=== PATIENT | male | born 1960 | race Caucasian/White ===

== ENCOUNTER 2019-11-19 16:47 | Emergency (ER) | payer OTHER, SELFPAY | END 2019-11-19 23:00 | disposition left against medical advice (07) | LOC: ER 01-09 08:55 | PROVIDERS: Emergency Provider Family Medicine | DX: Z53.21 Procedure and treatment not carried out due to patient leaving prior to being seen by health care provider (principal) | CPT/HCPCS: 99281 ==

== ENCOUNTER 2019-11-20 06:53 | Day surgery (SDC) | payer OTHER, SELFPAY ==
[2019-11-20] VITALS (13 sets, daily range): BP systolic 106–133; BP diastolic 52–73; PULSE 71–85; RESP 12–20; TEMP 36.3–37.3; O2SAT 90–98; BMI 27.5
--- NOTE | 2019-11-20 07:06 | ED_ITS ---
Documented by User: SAMINA Woodard 11/20/19 10:10 HPI - Abdominal Pain General: Chief Complaint: Abdominal Pain Stated Complaint: ABD PAIN Time Seen by Provider: 11/20/19 07:05 History of Present Illness: HPI narrative: Patient is a 59-year-old male who comes to the ED with abdominal pain, nausea/vomiting/diarrhea. Patient has a past medical history of hypertension and diabetes. Patient says the abdominal pain started 5 days ago and it is located in the periumbilical region and also right upper quadrant. He says the pain comes and goes and currently here in the ED he says his pain is minimal and rates it about 1 out of 10. He said he currently does not want any pain meds at this time. Patient says this morning he woke up and he had an episode of diarrhea and emesis. He also describes having pain in his right testicle as well. Denies any swelling, erythema or warmth of the testes. Right testicle is tender to the touch he says that the testicle pain started about the same down to the other abdominal pain 5 days ago. Denies any fever, chills, chest pain, shortness of breath, dysuria, hematuria, blood in stool. Associated Symptoms: Reports diarrhea, nausea and vomiting; Denies chills, constipation, dysuria, fever(s), hematochezia and hematuria Review of Systems Const: Denies: fever(s), chills or fatigue Eyes: Denies: change in vision or eye discomfort ENMT: Denies: throat pain, odynophagia, nasal discharge or nasal congestion Card: Denies: chest pain, palpitations, edema, swelling of feet/ankles, dyspnea on exertion or orthopnea Resp: Denies: dyspnea, productive cough or non-productive cough GI: Reports: abdominal pain, nausea, vomiting and diarrhea; Denies: constipation or hematochezia : Reports: testicular pain; Denies: flank pain, difficulty urinating, dysuria, hematuria, genital lesions, penile discharge or testicular mass Musc: Denies: neck pain, back pain or extremity swelling Skin/Breast: Denies: rash or new lesions Neuro: Denies: headache(s), numbness in extremities or weakness in extremities Physical Exam Const: COMMON NORMALS: no acute distress, patient oriented x3 and alert GENERAL APPEARANCE: cooperative, comfortable and diaphoretic (mild) HENMT: COMMON NORMALS: normocephalic HEAD & SCALP: normocephalic MOUTH: Normal oral and palatal mucosa present THROAT: posterior oropharynx normal and uvula midline Neck/C-Spine: COMMON NORMALS: supple GENERAL: Yes normal visual inspection Resp: COMMON NORMALS: normal respiratory effort, No retractions, No use of accessory muscles and clear to auscultation bilaterally AUSCULTATION: clear to auscultation bilaterally Cardio: COMMON NORMALS: regular rate, regular rhythm, S1 normal heart sound present, S2 normal heart sound present, No gallops present (Cardio), No clicks present (Cardio), No murmurs present (Cardio) and Peripheral pulses 2+ throughout RATE: regular rate RHYTHM: regular rhythm HEART SOUNDS: S1 normal heart sound present and S2 normal heart sound present PERIPHERAL PULSES: Peripheral pulses 2+ throughout GI: COMMON NORMALS: Normal to inspection, nondistended, normoactive bowel sounds present, Soft to palpation and no masses PALPATION: Yes Soft to palpation and Yes Tenderness to palpation present (GI) Details: RLQ (positive mcburneys point and negative bernal's sign) and other (periumbilical tenderness) : COMMON NORMALS: Yes no CVA tenderness BLADDER/KIDNEY EXAM: Yes no CVA tenderness TESTES: No testicular swelling, Yes testicular tenderness Testicular tenderness laterality: right and No testicular mass Back/Pelvis: COMMON NORMALS: no CVA tenderness Extremity: COMMON NORMALS: normal to inspection and no pedal edema Neuro: COMMON NORMALS: patient oriented x3 SENSORIUM/ORIENTATION: Yes alert GAIT: Yes Normal gait present Skin: COMMON NORMALS: no rashes or lesions noted NARRATIVE SKIN EXAM: Patient's skin was clammy on the neck back and abdomen. GENERAL SKIN EXAM: no rashes or lesions noted Course Vital Signs: Vital signs: Vital Signs Temperature 98.8 F 11/20/19 06:58 Pulse Rate 80 11/20/19 06:58 Respiratory Rate 16 11/20/19 06:58 Blood Pressure 106/52 11/20/19 06:58 Pulse Oximetry 90 11/20/19 06:58 MDM - Abdominal Pain MDM Narrative: Medical decision making narrative: Patient is a 59-year-old male who comes to the ED with abdominal pain, nausea/vomiting/diarrhea. He was also complaining of some right testicular pain. Abdominal pain is in the periumbilical region and right lower quadrant. Positive McBurney's point tenderness. White blood cell count 12.1 and CMP and UA were unremarkable. Ultrasound of testicles showed no acute findings. CT of the abdomen showed acute appendicitis and severe stenosis or occlusion of left common iliac artery. I discussed patient's case with Dr. Giles and he will be taking over patient care and admission of patient. Lab Data: Attestation: I reviewed the patient's lab results. Labs: Lab Results 11/20/19 11/20/19 11/20/19 Range/Units 05:34 05:34 08:09 WBC 12.1 H (4.0-10.0) 10^3/ uL RBC 5.07 (4.1-5.3) 10^6/u L Hgb 17.0 H (11.7-16.6) g/dL Hct 48.7 (42.0-52.0) % MCV 96.1 H (80-94) fL MCH 33.5 (28.0-34.0) pg MCHC 34.9 (30.0-36.0) g/dL RDW 12.5 (12.1-15.1) % Plt Count 211 (130-400) 10^3/c mm MPV 10.8 H (7.4-10.4) fL Neut % (Auto) 93.8 % Lymph % (Auto) 3.2 % [facility] % (Auto) 2.4 % Eos % (Auto) 0.2 % Baso % (Auto) 0.2 % Neut # (Auto) 11.3 H (1.8-7.7) 10^3/u L Lymph # (Auto) 0.4 L (0.8-4.8) 10^3/u L [facility] # (Auto) 0.3 (0.2-0.9) 10^3/u L Eos # (Auto) 0.0 (0.0-0.8) 10^3/u L Baso # (Auto) 0.0 (0.0-0.1) 10^3/u L Nucleated RBC % (a uto) 0 % Nucleated RBCs # 0.0 /100WBC Sodium 136 (136-145) mmol/L Potassium 3.4 L (3.5-5.1) mmol/L Chloride 98 (98-107) mmol/L Carbon Dioxide 17 L (22-29) mmol/L Anion Gap 24.4 H (5-19) BUN 13 (8-23) mg/dL Creatinine 1.0 (0.7-1.2) mg/dL GFR Calculation 76.0 L (90-130) mL/min Glucose 173 H (65-115) mg/dL Calculated Osmolal ity 282 L (285-295) mOsm/k g Calcium 9.3 (8.5-10.5) mg/dL Total Bilirubin 1.2 (0.15-1.2) mg/dL AST 16 (0-40) U/L ALT 11 (0-41) U/L Alkaline Phosphata se 71 (40-130) IU/L Total Protein 7.8 (6.6-8.7) g/dL Albumin 3.7 (3.5-5.2) g/dL Globulin 4.1 (1.3-4.6) g/dL Lipase 20 (13-60) U/L Urine Color Dark yellow (Yellow) Urine Appearance Clear (CLEAR) Urine pH 5 (5-7) Ur Specific Gravit y 1.020 (1.005-1.030) Urine Protein 1+ H (Negative) Urine Glucose (UA) Trace H (Normal) Urine Ketones 2+ H (Negative) Urine Blood Neg (Negative) Urine Nitrate Negative (Negative) Urine Bilirubin 1+ H (NEGATIVE) Urine Urobilinogen 1 H (Negative) mg/dL Ur Leukocyte Nancy ase Negative (Negative) Urine RBC None (0-2) /hpf Urine WBC Rare (0-5) /hpf Ur Squamous Epith Cells Rare (0-5) Urine Bacteria Trace (NONE) Hyaline Casts 0-4 H Fine Granular Cast s 0-4 H /lpf Coarse Granular Ca sts 0-4 H /lpf Urine Mucus 3+ Imaging Data ^: US: Attestation: I personally reviewed and interpreted this imaging study as follows: Radiologist's impression: [address] [address] Ultrasound Report Signed Patient: Noel Sherwood Unit #: [id number] : 1960 Age/Sex: 59 / M ADM Date: 11/20/19 Loc: ER Room/Bed: Attending Dr: Ordering Provider/Ordering MD: Zander Aguilera Date of Service: 11/20/19 Procedure(s): US scrotum [id number] Accession Number(s): [id number] Report Number: [id number] PROCEDURE INFORMATION: Exam: US Scrotum Exam date and time: 11/20/2019 9:22 AM Age: 59 years old Clinical indication: Scrotum pain; Additional info: Right testicular pain TECHNIQUE: Imaging protocol: Real-time ultrasound of the scrotum and contents with color Doppler and image documentation. COMPARISON: No relevant prior studies available. FINDINGS: Right testicle: 3.7 x 2.6 x 2.5 cm. No mass. No torsion. Normal vascular flow. The arterial resistive index is 0.67. Left testicle: 4.6 x 2.8 x 2.3 cm. No mass. No torsion. Normal vascular flow. The arterial resistive index is 0.62. Epididymides: Right epididymis 1.5 cm. Left epididymis 1.8 cm. Unremarkable. Scrotum: Normal. US/US scrotum [id number] IMPRESSION: No acute abnormality identified. Dictated By: Bull Lugo MD Signed By: Bull Lugo MD Signed Date/Time: 11/20/19955 DD/ 3 CT Abd/Pel: Attestation: I personally reviewed and interpreted this imaging study as follows: Radiologist's impression: [address] [address] [address] Scan Report Signed Patient: Noel Sherwood Unit #: [id number] : 1960 Age/Sex: 59 / M ADM Date: 11/20/19 Loc: ER Room/Bed: Attending Dr: Ordering Provider/Ordering MD: Zander Aguilera Date of Service: 11/20/19 Procedure(s): CT abdomen pelvis w con* [id number] Accession Number(s): [id number] Report Number: [id number] PROCEDURE INFORMATION: Exam: CT Abdomen And Pelvis With Contrast Exam date and time: 11/20/2019 7:45 AM Age: 59 years old Clinical indication: Abdominal pain; Localized; Right lower quadrant (rlq); Additional info: Abdom pain, n/v/d TECHNIQUE: Imaging protocol: Computed tomography of the abdomen and pelvis with intravenous contrast. Radiation optimization: All CT scans at this facility use at least one of these dose optimization techniques: automated exposure control; mA and/or kV adjustment per patient size (includes targeted exams where dose is matched to clinical indication); or iterative reconstruction. Contrast material: Omnipaque 300; Contrast volume: 95 ml; Contrast route: INTRAVENOUS (IV); COMPARISON: No relevant prior studies available. RADIATION DOSE METRICS: Total DLP (mGy-cm): 933.33 FINDINGS: Lungs: Bibasilar mild pulmonary subsegmental atelectasis is present. Liver: Normal. No mass. Gallbladder and bile ducts: Normal. No calcified stones. No ductal dilation. Pancreas: Normal. No ductal dilation. Spleen: The spleen demonstrates a few small granulomatous calcifications. Adrenals: Normal. No mass. Kidneys and ureters: Lateral left mid renal 8 mm exophytic indeterminate lesion. Stomach and bowel: Right subdiaphragmatic colonic interposition is present, a normal variant. Appendix: The appendix is moderately enlarged, measuring approximately 15.4 mm diameter with severe periappendiceal edema. A low-attenuation obstructing appendicolith is present measuring 11 mm. A periappendiceal fluid collection is not identified. Intraperitoneal space: Unremarkable. No free air. No significant fluid collection. 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 Atherosclerotic coronary calcifications are noted involving the LCx and RCA coronary arteries. Calcified phleboliths are present in the lower pelvis bilaterally. Lymph nodes: No enlarged lymph nodes. Bladder: Unremarkable as visualized. Reproductive: The prostate gland is enlarged measuring 5.0 cm transverse dimension, with nonspecific parenchymal calcifications. The prostate gland demonstrates nonspecific parenchymal calcifications. Bones/joints: Anterior bridging left sacroiliac joint marginal osteophytes. Diffuse osteopenia. L5-S1 spondylosis with bilateral neural foraminal stenosis. Soft tissues: Unremarkable. CT/CT abdomen pelvis w con* [id number] IMPRESSION: 1. Appendicitis. 2. 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 3. Prostatic hypertrophy with chronic calcific prostatitis. 4. Left renal small indeterminate lesion. Please see below comments. 5. Coronary atherosclerosis. 6. Chronic calcific prostatitis. COMMENTS: Consistent with the [employer]'s Incidental Findings Committee white paper (J Am Juancho Radiol 2018): Any incidental renal lesion less than 1.0 cm or classified as too small to characterize, or any incidental cystic renal lesion characterized as simple-appearing, is likely benign. No follow-up imaging is recommended for these lesions per consensus recommendations based on imaging criteria. Findings were discussed over the telephone with Zander HAAS on 11/20/2019 09:57 and 10:02 AM CDT. Radiation Dose CTDIVOL = (mGy): DLP = 933.33 (mGy-cm) Dictated By: Bull Lugo MD Signed By: Bull Lugo MD Signed Date/Time: 11/20/19 1005 DD/ 1003 Discharge Plan Discharge Patient Disposition: Admitted As Inpatient Clinical Impression: Acute appendicitis Condition: Stable Prescriptions: No Action hydrochlorothiazide 25 mg tablet 12.5 mg PO DAILY RF: 0 losartan 100 mg tablet 100 mg PO DAILY RF: 0 glipizide 5 mg tablet 10 mg PO BID RF: 0 buspirone 15 mg tablet 15 mg PO TID PRN (Reason: Anxiety) RF: 0 Sign Out Sign Out Data: Patient Sign Out occurred on 11/20/19 at 10:11. Patient's care was discussed, and care was transferred from to Janis Giles. Coding Level of Care Code ED Merchandising Intern for Chg Fwd Exam Comprehensive Documented by User: Janis Giles 11/20/19 10:20 HPI - Abdominal Pain General: Chief Complaint: Abdominal Pain Stated Complaint: ABD PAIN Time Seen by Provider: 11/20/19 07:05 Course Vital Signs: Vital signs: Vital Signs Temperature 98.8 F 11/20/19 06:58 Pulse Rate 80 11/20/19 06:58 Respiratory Rate 16 11/20/19 06:58 Blood Pressure 106/52 11/20/19 06:58 Pulse Oximetry 90 11/20/19 06:58 MDM - Abdominal Pain MDM Narrative: Medical decision making narrative: Patient seen and evaluated by me. I agree with Zander HAAS's assessment and plan. Patient's exam shows borderline diffuse peritonitis but there is no involuntary guarding but rebound is present. Patient is not vomiting. The case was reviewed with Dr. Ramsey and he agrees to come see and evaluate the patient. He agrees with ultrasound of the left lower extremity but it is believed that likely this is a chronic finding as the patient's not complaining of left lower extremity pain. Lab Data: Labs: Lab Results 11/20/19 11/20/19 11/20/19 Range/Units 05:34 05:34 08:09 WBC 12.1 H (4.0-10.0) 10^3/ uL RBC 5.07 (4.1-5.3) 10^6/u L Hgb 17.0 H (11.7-16.6) g/dL Hct 48.7 (42.0-52.0) % MCV 96.1 H (80-94) fL MCH 33.5 (28.0-34.0) pg MCHC 34.9 (30.0-36.0) g/dL RDW 12.5 (12.1-15.1) % Plt Count 211 (130-400) 10^3/c mm MPV 10.8 H (7.4-10.4) fL Neut % (Auto) 93.8 % Lymph % (Auto) 3.2 % [facility] % (Auto) 2.4 % Eos % (Auto) 0.2 % Baso % (Auto) 0.2 % Neut # (Auto) 11.3 H (1.8-7.7) 10^3/u L Lymph # (Auto) 0.4 L (0.8-4.8) 10^3/u L [facility] # (Auto) 0.3 (0.2-0.9) 10^3/u L Eos # (Auto) 0.0 (0.0-0.8) 10^3/u L Baso # (Auto) 0.0 (0.0-0.1) 10^3/u L Nucleated RBC % (a uto) 0 % Nucleated RBCs # 0.0 /100WBC Sodium 136 (136-145) mmol/L Potassium 3.4 L (3.5-5.1) mmol/L Chloride 98 (98-107) mmol/L Carbon Dioxide 17 L (22-29) mmol/L Anion Gap 24.4 H (5-19) BUN 13 (8-23) mg/dL Creatinine 1.0 (0.7-1.2) mg/dL GFR Calculation 76.0 L (90-130) mL/min Glucose 173 H (65-115) mg/dL Calculated Osmolal ity 282 L (285-295) mOsm/k g Calcium 9.3 (8.5-10.5) mg/dL Total Bilirubin 1.2 (0.15-1.2) mg/dL AST 16 (0-40) U/L ALT 11 (0-41) U/L Alkaline Phosphata se 71 (40-130) IU/L Total Protein 7.8 (6.6-8.7) g/dL Albumin 3.7 (3.5-5.2) g/dL Globulin 4.1 (1.3-4.6) g/dL Lipase 20 (13-60) U/L Urine Color Dark yellow (Yellow) Urine Appearance Clear (CLEAR) Urine pH 5 (5-7) Ur Specific Gravit y 1.020 (1.005-1.030) Urine Protein 1+ H (Negative) Urine Glucose (UA) Trace H (Normal) Urine Ketones 2+ H (Negative) Urine Blood Neg (Negative) Urine Nitrate Negative (Negative) Urine Bilirubin 1+ H (NEGATIVE) Urine Urobilinogen 1 H (Negative) mg/dL Ur Leukocyte Nancy ase Negative (Negative) Urine RBC None (0-2) /hpf Urine WBC Rare (0-5) /hpf Ur Squamous Epith Cells Rare (0-5) Urine Bacteria Trace (NONE) Hyaline Casts 0-4 H Fine Granular Cast s 0-4 H /lpf Coarse Granular Ca sts 0-4 H /lpf Urine Mucus 3+ Discharge Plan Discharge Patient Disposition: Admitted As Inpatient Clinical Impression: Acute appendicitis Condition: Stable Prescriptions: No Action hydrochlorothiazide 25 mg tablet 12.5 mg PO DAILY RF: 0 losartan 100 mg tablet 100 mg PO DAILY RF: 0 glipizide 5 mg tablet 10 mg PO BID RF: 0 buspirone 15 mg tablet 15 mg PO TID PRN (Reason: Anxiety) RF: 0 Sign Out Sign Out Data: Patient Sign Out occurred on 11/20/19 at 10:11. Patient's care was discussed, and care was transferred from to Janis Giles. Coding Level of Care Code ED Merchandising Intern for Durga Fwd Exam Comprehensive
--- NOTE | 2019-11-20 07:19 | USR_ITS ---
PROCEDURE INFORMATION: Exam: US Scrotum Exam date and time: 11/20/2019 9:22 AM Age: 59 years old Clinical indication: Scrotum pain; Additional info: Right testicular pain TECHNIQUE: Imaging protocol: Real-time ultrasound of the scrotum and contents with color Doppler and image documentation. COMPARISON: No relevant prior studies available. FINDINGS: Right testicle: 3.7 x 2.6 x 2.5 cm. No mass. No torsion. Normal vascular flow. The arterial resistive index is 0.67. Left testicle: 4.6 x 2.8 x 2.3 cm. No mass. No torsion. Normal vascular flow. The arterial resistive index is 0.62. Epididymides: Right epididymis 1.5 cm. Left epididymis 1.8 cm. Unremarkable. Scrotum: Normal. US/US scrotum [id number] IMPRESSION: No acute abnormality identified.
--- NOTE | 2019-11-20 07:19 | CTR_ITS ---
PROCEDURE INFORMATION: Exam: CT Abdomen And Pelvis With Contrast Exam date and time: 11/20/2019 7:45 AM Age: 59 years old Clinical indication: Abdominal pain; Localized; Right lower quadrant (rlq); Additional info: Abdom pain, n/v/d TECHNIQUE: Imaging protocol: Computed tomography of the abdomen and pelvis with intravenous contrast. Radiation optimization: All CT scans at this facility use at least one of these dose optimization techniques: automated exposure control; mA and/or kV adjustment per patient size (includes targeted exams where dose is matched to clinical indication); or iterative reconstruction. Contrast material: Omnipaque 300; Contrast volume: 95 ml; Contrast route: INTRAVENOUS (IV); COMPARISON: No relevant prior studies available. RADIATION DOSE METRICS: Total DLP (mGy-cm): 933.33 FINDINGS: Lungs: Bibasilar mild pulmonary subsegmental atelectasis is present. Liver: Normal. No mass. Gallbladder and bile ducts: Normal. No calcified stones. No ductal dilation. Pancreas: Normal. No ductal dilation. Spleen: The spleen demonstrates a few small granulomatous calcifications. Adrenals: Normal. No mass. Kidneys and ureters: Lateral left mid renal 8 mm exophytic indeterminate lesion. Stomach and bowel: Right subdiaphragmatic colonic interposition is present, a normal variant. Appendix: The appendix is moderately enlarged, measuring approximately 15.4 mm diameter with severe periappendiceal edema. A low-attenuation obstructing appendicolith is present measuring 11 mm. A periappendiceal fluid collection is not identified. Intraperitoneal space: Unremarkable. No free air. No significant fluid collection. 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 Atherosclerotic coronary calcifications are noted involving the LCx and RCA coronary arteries. Calcified phleboliths are present in the lower pelvis bilaterally. Lymph nodes: No enlarged lymph nodes. Bladder: Unremarkable as visualized. Reproductive: The prostate gland is enlarged measuring 5.0 cm transverse dimension, with nonspecific parenchymal calcifications. The prostate gland demonstrates nonspecific parenchymal calcifications. Bones/joints: Anterior bridging left sacroiliac joint marginal osteophytes. Diffuse osteopenia. L5-S1 spondylosis with bilateral neural foraminal stenosis. Soft tissues: Unremarkable. CT/CT abdomen pelvis w con* [id number] IMPRESSION: 1. Appendicitis. 2. 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 3. Prostatic hypertrophy with chronic calcific prostatitis. 4. Left renal small indeterminate lesion. Please see below comments. 5. Coronary atherosclerosis. 6. Chronic calcific prostatitis. COMMENTS: Consistent with the [employer]'s Incidental Findings Committee white paper (J Am Juancho Radiol 2018): Any incidental renal lesion less than 1.0 cm or classified as too small to characterize, or any incidental cystic renal lesion characterized as simple-appearing, is likely benign. No follow-up imaging is recommended for these lesions per consensus recommendations based on imaging criteria. Findings were discussed over the telephone with Zander HAAS on 11/20/2019 09:57 and 10:02 AM CDT. Radiation Dose CTDIVOL = (mGy): DLP = 933.33 (mGy-cm)
[2019-11-20] MEDS: ondansetron 2 mg/ML SDV 2 mL 4 MG IVP (07:33)
[2019-11-20 08:27] LABS: Basophils % 0.2 %; Eosinophils % 0.2 %; Hematocrit 48.7 % (42.0-52.0); Lymphocytes # 0.4 10^3/uL (0.8-4.8); Lymphocytes % 3.2 %; Mean Corpuscular HGB Conc 34.9 g/dL (30.0-36.0); Mean Corpuscular Hemoglobin 33.5 pg (28.0-34.0); Mean Corpuscular Volume 96.1 fL (80-94); Mean Platelet Volume 10.8 fL (7.4-10.4); Monocytes # 0.3 10^3/uL (0.2-0.9); Monocytes % 2.4 %; Neutrophils # 11.3 10^3/uL (1.8-7.7); Neutrophils % 93.8 %; Nucleated Red Blood Cells % 0 %; Platelet Count 211 10^3/cmm (130-400); Red Blood Count 5.07 10^6/uL (4.1-5.3); Red Cell Distribution Width 12.5 % (12.1-15.1); White Blood Count 12.1 10^3/uL (4.0-10.0)
[2019-11-20 08:41] LABS: Alanine Aminotransferase 11 U/L (0-41); Albumin Level 3.7 g/dL (3.5-5.2); Alkaline Phosphatase 71 IU/L (40-130); Anion Gap 24.4 (5-19); Aspartate Amino Transferase 16 U/L (0-40); Blood Urea Nitrogen 13 mg/dL (8-23); Calcium 9.3 mg/dL (8.5-10.5); Carbon Dioxide 17 mmol/L (22-29); Chloride 98 mmol/L (98-107); Creatinine Clr Calc Pharmacy 99.4259; Globulin 4.1 g/dL (1.3-4.6); Glucose 173 mg/dL (65-115); Lipase 20 U/L (13-60); Osmolality Calculated 282 mOsm/kg (285-295); Potassium 3.4 mmol/L (3.5-5.1); Sodium 136 mmol/L (136-145); Total Bilirubin 1.2 mg/dL (0.15-1.2); Total Protein 7.8 g/dL (6.6-8.7)
[2019-11-20 08:42] LABS: Urine Appearance Clear (CLEAR); Urine Color Dark Yellow (Yellow); pH Urine 5 (5-7)
[2019-11-20 08:43] LABS: Bacteria Urine TRACE; Bilirubin Urine 1+ (NEGATIVE); Blood Urine Neg (Negative); Glucose Urine UA Trace (Normal); Ketones Urine 2+ (Negative); Leukocyte Esterase Urine Negative (Negative); Mucus Urine 3+; Nitrate Urine Negative (Negative); Protein Urine 1+ (Negative); Squamous Epithelial Cell Urine RARE (0-5); Urobilinogen Urine 1 mg/dL (Negative); WBC Urine RARE /hpf (0-5)
[2019-11-20 08:44] LABS: Add Urine Culture? No; Coarse Granular Casts Urine 0-4 /lpf; Fine Granular Casts Urine 0-4 /lpf; Hyaline Casts Urine 0-4
--- NOTE | 2019-11-20 09:32 | PC.NURSE ---
patient to ct
[2019-11-20] MEDS: iohexol 300 mg/mL 100 mL Btl IV (09:42)
--- NOTE | 2019-11-20 10:13 | USR_ITS ---
PROCEDURE INFORMATION: Exam: US Duplex Left Lower Extremity Arteries Or Arterial Bypass Grafts Exam date and time: 11/20/2019 10:47 AM Age: 59 years old Clinical indication: Abnormal findings; Abnormal imaging study of limbs; CT abd; Additional info: CT findings of left common iliac artery occlusion TECHNIQUE: Imaging protocol: Left Real-time duplex scan of the arteries or arterial bypass grafts of the left lower extremity with 2-D mcmanus scale, color Doppler flow and spectral waveform analysis. Images documented and saved. COMPARISON: No relevant prior studies available. FINDINGS: Left external iliac artery: 25.0-22.1 cm/sec, monophasic. Left common femoral artery: 22.9 cm/sec, monophasic. Left superficial femoral artery: Proximal SFA 13.2 cm/sec, monophasic. Mid SFA 10.3 cm/sec, monophasic. Distal SFA 28.0 cm/sec, monophasic. Left popliteal artery: Popliteal 14.5 cm/sec, monophasic, absent diastolic flow. Left calf/foot arteries: Proximal JAVAN cm/sec. Mid JAVAN cm/sec. Distal JAVAN cm/sec. Proximal MACHINIST GENERAL cm/sec. Mid MACHINIST GENERAL cm/sec. Distal MACHINIST GENERAL 9.2 cm/sec, monophasic, absent diastolic flow. Proximal peroneal cm/sec. Mid peroneal cm/sec. Distal peroneal cm/sec. Dorsalis pedis 13.7 cm/sec, monophasic, absent diastolic flow. Other findings: Ankle brachial index 0.64. US/CV arterial duplex [facility] [id number] IMPRESSION: 1. Monophasic waveforms throughout the left lower extremity arteries suggesting aortoiliac inflow disease. 2. Ankle brachial index 0.64.
[2019-11-20] MEDS: piperacillin-tazobactam 3.375 GM in sodium chloride 0.9% (plus) 50 ML IV (10:15)
[2019-11-20] MEDS: sodium chloride 0.9% 1,000 ML 999 ML IV (10:17)
--- NOTE | 2019-11-20 10:56 | P.HP_ITS ---
Providers/Chief Complaint Chief Complaint: ABD PAIN History of Present Illness Noel Sherwood is a 59 year old male who developed abdominal pain 4 days ago. He says the pain started in his right lower quadrant. It then got better and went away for a short period of time but then returned over the last couple of days and has continued to worsen. He vomited today. There was no evidence of hematemesis. He had an episode of diarrhea today, as well. His bowel movements up until today have been normal. He has had some chills at home but has not taken his temperature. He presented to the emergency department and a CAT scan showed changes consistent with acute appendicitis. The patient has never had a colonoscopy before. He is unaware of any known family history of colon neopl klever. Incidentally, it appears he was also found to have some chronic significant atherosclerotic disease involving his left iliac artery. He denies any symptoms of claudication involving his left lower extremity, but does get some back and buttock pain with activity. Review of Systems General: Reports: 10 or more systems reviewed and unremarkable except in HPI and below Const: Reports: fever(s) and chills GI: Reports: abdominal pain, nausea, vomiting and diarrhea; Denies: hematochezia Musc: Reports: back pain and other (Left-sided back/buttock pain with increased activity.) Psych: Reports: anxiety Medications/Allergies Home Medications Medication Instructions Recorded Confirmed Last Taken Type buspirone 15 mg PO TID PRN 11/20/19 11/20/19 Unknown History glipizide 10 mg PO BID 11/20/19 11/20/19 11/19/19 History hydrochlorothiazide 12.5 mg PO DAILY 11/20/19 11/20/19 11/19/19 History losartan 100 mg PO DAILY 11/20/19 11/20/19 11/19/19 History Allergies Allergy/AdvReac Type Severity Reaction Status Date / Time aspirin Allergy ALGY-Swell Verified 11/20/19 11:12 Lip/Tongue/Throat PFSH Acute PFSH: Medical History (Updated 11/20/19 @ 11:16 by Richard Ramsey MD) Anxiety Arterial obstructive disease Diabetes Hypertension Surgical History (Updated 11/20/19 @ 11:07 by Richard Ramsey MD) History of lumbar laminectomy x 1 Social History (Updated 11/20/19 @ 11:09 by Richard Ramsey MD) Smoking and tobacco status: current every day smoker cigarettes Packs smoked per day: 2 Years cigarettes smoked: 40 [ Other cigarette details: 14-eely-rkto history ] Alcohol intake: never Vitals/I&O/Wt Last Vital Signs Temp 98.8 F 11/20/19 06:58 Pulse 80 11/20/19 06:58 Resp 16 11/20/19 06:58 BP 106/52 11/20/19 06:58 Pulse Ox 90 11/20/19 06:58 Weight last 48 hrs Weight 220 lb Physical Exam Narrative: EXAM NARRATIVE: The patient was encountered in his room in the emergency department. He does not appear to be in any acute distress. The pupils seem equal. No carotid bruits are heard. The lungs are clear anteriorl y. The heart is regular. The abdomen reveals infrequent bowel sounds. It is soft. Rovsing's sign is positive. The patient is maximum point of tenderness is over McBurney's point in the right lower quadrant. No obvious masses are palpated. The extremities reveal no edema. It is difficult for me to feel a good dorsalis pedis pulse on the left side, however. Neurologically the patient appears to be grossly intact. Data : 11/20/19 05:34 11/20/19 05:34 Micro: Microbiology 11/20/19 05:34 Blood Culture - Preliminary Blood SPECIMEN COLLECTED CT Abd/Pel: Radiologist's impression: CT abdomen/pelvis 11/20/2019 iMPRESSION: 1. Appendicitis. 2. 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 3. Prostatic hypertrophy with chronic calcific prostatitis. 4. Left renal small indeterminate lesion. Please see below comments. 5. Coronary atherosclerosis. 6. Chronic calcific prostatitis. COMMENTS: Consistent with the [employer]'s Incidental Findings Committee white paper (J Am Ju[employer] Radiol 2018): Any incidental renal lesion less than 1.0 cm or classified as too small to characterize, or any incidental cystic renal lesion characterized as simple-appearing, is likely benign. No follow-up imaging is recommended for these lesions per consensus recommendations based on imaging criteria. US Vascular: Radiologist's impression: Duplex scan left lower extremity 11/20/2019 iMPRESSION: 1. Monophasic waveforms throughout the left lower extremity arteries suggesting aortoiliac inflow disease. 2. Ankle brachial index 0.64. A&P Assessment and plan (1) Acute appendicitis: CT reviewed. I agree with the assessment of acute appendicitis. The patient's appendix is somewhat retrocecal in location, perhaps explaining the delay in him presenting. We discussed appendicitis in some detail. We discussed both conservative and operative techniques of management. Both laparoscopic and open techniques of appendectomy were discussed, as well as the potential risks of bleeding, infection, internal organ injury, etc. The patient seems to understand and would like to proceed with an appendectomy today. The on-call staff are already involved in a procedure and it may be 2 hours before we can proceed to the operating room. I am going to give the patient a one-time subcutaneous dose of heparin in light of his arterial disease. The patient already has told me that he plans on going home today no matter what. I told him that if there is no evidence of perforation this would probably be something that would be reasonable. If there is perforation, however, I already told him that I will recommend he stay in the hospital for further intravenous antibiotic treatment. Status: Acute Qualifiers: Acute appendicitis type: with generalized peritonitis Appendicitis abscess presence: without abscess Appendicitis gangrene presence: without gangrene Appendicitis perforation presence: unspecified whether perforation present Qualified Code(s): K35.20 - Acute appendicitis with generalized peritonitis, without abscess Attestations Medical Necessity Statement*: The patient is fairly adamant that he would like to try to go home today after surgery. I made him aware that he may have to do this against my advice, based on the findings at the time of surgery. He understands. He will be kept in outpatient status for now. Coding Level of Care Code Acute [facility] for [facility] Diagnoses Acute appendicitis K35.20 Acute appendicitis type: with generalized peritonitis Appendicitis abscess presence: without abscess Appendicitis gangrene presence: without gangrene Appendicitis perforation presence: unspecified whether perforation present
[2019-11-20] MEDS: heparin 5,000 unit/mL INJ 1 mL 5000 UNIT SUBCUT (11:08)
--- NOTE | 2019-11-20 11:10 | PC.NURSE ---
patient to surgery meds given and questions answered
--- NOTE | 2019-11-20 11:38 | P.ANESASSM_ITS ---
Pre-Anesthetic Assessment Pre-Anesthetic Assessment: Height/Weight: Height 1.91 m Weight 99.79 kg Temp Pulse Resp BP Pulse Ox 98.8 F 82 20 H 127/73 92 11/20/19 06:58 11/20/19 11:12 11/20/19 11:12 11/20/19 11:12 11/20/19 11:12 Proposed Procedure: Operation Date: 11/20/19 11:15 Proposed Procedures p Laparoscopic Appendectomy/possibly open appendectomy(Not Applicable) - Richard Ramsey MD Last intake: Intake Last Liquid Date 11/20/19 Last Liquid Time 06:00 Last Solid Date 11/19/19 Last Solid Time 06:30 Social: Social History: Tobacco and No alcohol Exam: Pre-Anes Outpt Exam: alert, oriented x 3, clear to auscultation bilaterally and regular rate & rhythm Airway: Submandibular: WNL Cervical ROM: WNL MP: 2 Dentition: Other (teeth ok) History/ROS: No significant history except as noted Pulmonary: Pulmonary: None reported CV/HEM: CV/HEM: HTN and PVD : : None reported Hepatic: Hepatic: None reported GI: GI: None reported Metabolic: Metabolic: DM Musc/skel: Musc/skel: Lower Back Pain and OA/DJD Neuropsych: Neuropsych: Anxiety and Depression Anesthetic Plan: ASA status: 3E Anesthesia: Anesthesia Evaluation and General Risk of > 500 ml blood loss (7ml/kg in children): No Meds/Allergies Current Medications: Current Medications Generic Name Dose Route Start Last Admin Trade Name Freq PRN Reason Stop Dose Admin Potassium Chloride 20 meq in 100 mls @ 50 mls/hr 11/20/19 10:08 11/20/19 10:16 [place] Premix IV 11/20/19 12:07 50 mls/hr ONCE ONE Administration PFSH Anesthesia PFSH: Medical History Anxiety Arterial obstructive disease L iliac Diabetes Hypertension Tobacco abuse Surgical History History of lumbar laminectomy x 1 Social History Smoking and tobacco status: current every day smoker cigarettes Packs smoked per day: 2 Years cigarettes smoked: 40 [ Other cigarette details: 04-bkqu-hiod history ] Alcohol intake: never Data Anesthesia CBC & Chem 7: 11/20/19 05:34 11/20/19 05:34 Other Labs: Laboratory Results - last 48 hr 11/20/19 11/20/19 11/20/19 05:34 05:34 08:09 WBC 12.1 H RBC 5.07 Hgb 17.0 H Hct 48.7 MCV 96.1 H MCH 33.5 MCHC 34.9 RDW 12.5 Plt Count 211 MPV 10.8 H Neut % (Auto) 93.8 Lymph % (Auto) 3.2 [place] % (Auto) 2.4 Eos % (Auto) 0.2 Baso % (Auto) 0.2 Neut # (Auto) 11.3 H Lymph # (Auto) 0.4 L [place] # (Auto) 0.3 Eos # (Auto) 0.0 Baso # (Auto) 0.0 Nucleated RBC % (auto) 0 Nucleated RBCs # 0.0 Sodium 136 Potassium 3.4 L Chloride 98 Carbon Dioxide 17 L Anion Gap 24.4 H BUN 13 Creatinine 1.0 GFR Calculation 76.0 L Glucose 173 H Calculated Osmolality 282 L Calcium 9.3 Total Bilirubin 1.2 AST 16 ALT 11 Alkaline Phosphatase 71 Total Protein 7.8 Albumin 3.7 Globulin 4.1 Lipase 20 Urine Color Dark yellow Urine Appearance Clear Urine pH 5 Ur Specific [place] 1.020 Urine Protein 1+ H Urine Glucose (UA) Trace H Urine Ketones 2+ H Urine Blood Neg Urine Nitrate Negative Urine Bilirubin 1+ H Urine Urobilinogen 1 H Ur Leukocyte Esterase Negative Urine RBC None Urine WBC Rare Ur Squamous Epith Cells Rare Urine Bacteria Trace Hyaline Casts 0-4 H Fine Granular Casts 0-4 H Coarse Granular Casts 0-4 H Urine Mucus 3+ Micro: Microbiology 11/20/19 05:34 Blood Culture - Preliminary Blood SPECIMEN COLLECTED Cardiac Studies: No Data to Display
[2019-11-20 11:39] LABS: Magnesium 1.6 mg/dL (1.7-2.3)
[2019-11-20] MEDS: metroNIDAZOLE IV 500 MG/100 ML PREMIX 100 MG IV (12:09)
--- NOTE | 2019-11-20 12:36 | PM.OP ---
Operative Report Date of procedure: November 20, 2019 Pre-op Diagnosis: Acute appendicitis. Post-op Diagnosis: Same, with gangrenous changes near the base. Procedure Done: Laparoscopic appendectomy. Specimens removed/disposition: Appendix. Surgeon: Richard Ramsey Anesthesia: General Estimated blood loss (mL): 5 Complications: None. Condition: stable Disposition: PACU Procedure: The patient was brought to the Operating Room and was placed in a supine position on the operating room table. General endotracheal anesthesia was induced. The abdomen was prepped and draped in a sterile fashion. A small vertical incision was carried out in the superior aspect of the umbilicus. Blunt dissection was carried out down to the fascia, which was grasped with a Reid clamp. A stay suture of 0 Vicryl was placed on either side of the midline and the midline fascia was incised. The underlying peritoneum was opened bluntly and the Iva port was placed directly into the peritoneal cavity and was held in place with the inflatable balloon. The peritoneal cavity was insufflated with carbon dioxide. The laparoscope was used to inspect the peritoneal cavity. No gross abnormalities were initially noted. Two 5-millimeter ports were placed in the left lower quadrant under direct vision. The patient was tilted in a Trendelenburg position and slightly to the left side. A laparoscopic [place] was used to elevate the cecum and the appendix was identified. The appendix was in somewhat of a retrocecal location. The terminal ileum was laying over the top of part of it. The ileum was mobilized and the appendix was freed using blunt dissection and was then elevated. This by grasping the appendix with a Ana clamp, some purulent material came from the lumen of the appendix at the site of the Ana. This was quickly suctioned out. The mesoappendix was divided using cautery to maintain hemostasis at the base of the appendix. The base of the appendix showed some gangrenous changes; there was no evidence of gross perforation but I am sure microperforation had occurred. The base of the appendix closest to the cecum appeared more healthy and was divided using an endoscopic stapler. The appendix was removed from the peritoneal cavity after being placed in a laparoscopic bag. The right lower quadrant and pelvis were irrigated. The staple line on the cecum was identified and appeared to be in good condition. The Iva port was removed from the umbilical site and the stay sutures of Vicryl were tied to each other at the umbilicus, closing the fascial defect so that it was airtight. A final round of irrigation was carried out in the right lower quadrant and the pelvis. No ongoing problems were seen. The remaining ports were removed from the abdominal wall as the pneumoperitoneum was evacuated. All skin incisions were closed using inverted interrupted sutures of 4-0 Vicryl. Benzoin and Steri-Strips were placed over the incisions and Band-Aids followed. The patient was taken to the Recovery Room in stable condition postoperatively.
[2019-11-20] MEDS: meperidine 50 mg/mL INJ 12.5 MG IVP ×2 (12:56→13:02)
== END 2019-11-20 13:50 | disposition home or self-care (01) ==
LOC: ER 10:11 → OR 10:20
PROVIDERS: Emergency Medicine; Physician Assistant; Visit Provider Surgery
PROC: 0DTJ4ZZ Resection of Appendix, Percutaneous Endoscopic Approach (ICD-10-PCS; CPT 44970; principal; 2019-11-20 11:15)
DX: K35.20 Acute appendicitis with generalized peritonitis, without abscess (principal); I10 Essential (primary) hypertension; E11.9 Type 2 diabetes mellitus without complications; M19.90 Unspecified osteoarthritis, unspecified site; F17.210 Nicotine dependence, cigarettes, uncomplicated
CPT/HCPCS: 44970; 12345; 74177; 76870; 80053; 81001; 83690; 83735; 85025; 87040; 87077; 87205; 88304; 93926; 96372; 96375; 99283; J0690; J1644; J2001; J2175; J2405; J2543; J2704; J2710; J3010; J3480; J3490; J7030; Q9967; S0030

== ENCOUNTER 2020-03-07 08:36 | Outpatient (CLI) | payer OTHER, SELFPAY ==
--- NOTE | 2020-03-07 08:47 | CT_ITS ---
WS: [id number] CTA ABDOMINAL AORTA WITH RUNOFF TECHNIQUE: Contrast enhanced CTA of the abdominal aorta with bilateral lower extremity runoff. Multip lanar reformatted images were obtained. MIP reformats were also reviewed. CLINICAL INFORMATION: CLAUDICATION, PVD COMPARISON: None. DLP: 1904.[address] scans at [facility] use at least one of these dose optimization techniques: automat ed exposure control; mA and/or kV adjustment per patient size (includes targeted exams where dose is matched to clinical indication); or iterative reconstruction. FINDINGS: Mild abdominal aortic calcification. Celiac and SMA origins are patent. Proximal renal faisal osman are patent. Normal renal parenchymal enhancement. Lung bases are well aerated. Normal liver. Nor mal gallbladder. Tiny hepatic cyst left hepatic lobe. Normal spleen. Normal GE junction. Normal pancr eatic parenchymal enhancement. Adrenal glands are normal. Tiny left renal cysts appear unchanged. Enl arged calcified prostate. Incidental tiny fat-containing umbilical hernia. RIGHT: Right common iliac artery is patent with moderate calcified atheromatous disease. External and internal iliac arteries are patent. Right common femoral artery is patent. Right superficial femoral artery and deep femoral arteries are patent. Superficial femoral artery is patent to the adductor hi atus. Approximately 60% stenosis right popliteal artery [id number] with dense calcification. Popl iteal artery remains patent to the trifurcation. Normal 3 vessel runoff to the ankle. LEFT: Left common iliac artery is occluded at the origin. No flow in the left common iliac artery. Re constitution of the external and internal iliac arteries. Left common femoral and deep femoral arteri es are patent. Superficial femoral artery and popliteal arteries are patent. Mild narrowing in the po pliteal artery at the adductor hiatus with calcification. Popliteal is patent to the trifurcation. No rmal 3 vessel runoff to the ankle. CT/CT angio abd aorta runof [id number] IMPRESSION: 1. Left common iliac artery is occluded. Reconstitution of the external and in ternal iliac arteries at the origins. Normal 3 vessel runoff to the left lower extremity. 2. Moderate stenosis right popliteal artery [id number] measuring 60% which remains patent. Normal 3 vessel runoff to the ankle. 3. Normal caliber abdominal aorta with mild calcification. 4. Celiac and SMA are patent. Proximal renal arteries are patent.
[2020-03-07 09:18] LABS: Blood Urea Nitrogen 26 mg/dL (8-23); Glomerular Filtration Rate 98.3 mL/min (90-130)
[2020-03-07] MEDS: iohexol 350 mg/mL 100 mL Btl IV (09:44)
== END 2020-03-07 08:37 | disposition home or self-care (01) ==
LOC: CT 08:44
PROVIDERS: PCP Physician Assistant Medical; Visit Provider Nurse Practitioner Family
DX: E11.51 Type 2 diabetes mellitus with diabetic peripheral angiopathy without gangrene (principal); E11.65 Type 2 diabetes mellitus with hyperglycemia; I70.0 Atherosclerosis of aorta
CPT/HCPCS: 36415; 75635; 82565; 84520